=== PATIENT | female | born 1980 | race Caucasian/White ===

== ENCOUNTER 2022-12-07 23:23 | Emergency (ER) | payer OTHER ==
[~2022-12-07] VITALS: Ht 177.8 cm; Wt 105.7 kg
[~2022-12-07 23:23] MED LIST: CALCIUM500 M1 PO; LIOTHYRONINE SO5 MCG; NORTRIPTYLINE H10 MG PO; PERCOCET 7.5-31 EACH PO; TIROSINT150 MCG PO; VITAFOL-OB+DHA1 EACH PO
[2022-12-08] MEDS ORDERED: HYDROCODON-ACE1 EA10 PO (01:50)
[2022-12-08] MEDS ORDERED: CEPHALEXIN500 M1 PO (01:50)
[2022-12-08] MEDS ORDERED: ONDANSETRON ODT8 MG PO (01:50)
[2022-12-08 02:16] VITALS: BP 110/77
== END 2022-12-08 02:19 | disposition home or self-care (01) ==
LOC: ED 23:23
DX: N39.0 Urinary tract infection, site not specified (principal); E06.3 Autoimmune thyroiditis; Z88.1 Allergy status to other antibiotic agents; Z79.899 Other long term (current) drug therapy
CPT/HCPCS: 36415; 74177; 80053; 81001; 83690; 84703; 85025; 96375; 99284-25; A9270; J1170; J2405; J7030; Q9967